=== PATIENT | male | born 1990 | race Caucasian/White ===

== ENCOUNTER 2016-07-27 00:27 | Emergency (ER) | payer OTHER ==
[~2016-07-27] VITALS: Ht 177.8 cm; Wt 70.9 kg
[2016-07-27] MEDS ORDERED: FLEXERIL10 MG PO (00:59)
[2016-07-27] MEDS ORDERED: NAPROSYN500 MG PO (00:59)
[2016-07-27 01:06] VITALS: BP 149/102
== END 2016-07-27 01:07 | disposition home or self-care (01) ==
LOC: EXP 00:27 → EME 00:27 → EXP 01:07
DX: D17.1 Benign lipomatous neoplasm of skin and subcutaneous tissue of trunk (principal); M54.9 Dorsalgia, unspecified
CPT/HCPCS: 99281; 99283

== ENCOUNTER 2016-07-28 14:14 | Emergency (ER) | payer OTHER ==
[~2016-07-28] VITALS: Ht 172.7 cm; Wt 68.5 kg
[~2016-07-28 14:14] MED LIST: FLEXERIL10 MG PO; NAPROSYN500 MG PO
[2016-07-28 14:15] VITALS: BP 0/0
== END 2016-07-28 15:30 | disposition left against medical advice (07) ==
LOC: EME 14:14
DX: S89.91XA Unspecified injury of right lower leg, initial encounter (principal); X50.1XXA Overexertion from prolonged static or awkward postures, initial encounter; Z53.21 Procedure and treatment not carried out due to patient leaving prior to being seen by health care provider